=== PATIENT | male | born 1965 | race Caucasian/White ===

== ENCOUNTER 2025-05-27 16:26 | Emergency (ER) | payer OTHER ==
[~2025-05-27] VITALS: Ht 185.4 cm; Wt 79.0 kg
[2025-05-27 16:34] VITALS: TEMP 36.9; O2SAT 100
[2025-05-27] MEDS: LIDOCAINE 5% PATCH TOP STA (19:08)
[2025-05-27] MEDS: KETOROLAC 30MG/ML VIAL IM ONE (19:09)
[2025-05-27] MEDS: CYCLOBENZAPRINE 10MG TABLET PO ONE (19:09)
[2025-05-27] MEDS ORDERED: KETO10TA2 MT (20:37)
[2025-05-27] MEDS ORDERED: LIDO700A30 TP (20:37)
[2025-05-27] MEDS ORDERED: CYCL10TA21 MT (20:37)
[2025-05-27 20:54] VITALS: BP 149/100; PULSE 69; RESP 14; O2SAT 100
== END 2025-05-27 21:02 | disposition home or self-care (01) ==
LOC: ER 16:26
DX: M50.30 Other cervical disc degeneration, unspecified cervical region (principal); Z79.899 Other long term (current) drug therapy; V43.52XA Car driver injured in collision with other type car in traffic accident, initial encounter; Y93.89 Activity, other specified; Y92.410 Unspecified street and highway as the place of occurrence of the external cause; Y99.8 Other external cause status
CPT/HCPCS: 72040; 96372; 99283; J1885; Z7610